=== PATIENT | female | born 1940 | race Caucasian/White ===

== ENCOUNTER 2017-07-28 23:54 | Inpatient (IN) | payer OTHER, MEDICAID ==
[~2017-07-28] VITALS: Ht 170.2 cm; Wt 95.0 kg
[2017-07-29 01:53] LABS: Basophils # (auto) 0.2 uL; Basophils % (auto) 1.6 % (0.0-2.0); Eosinophils # (auto) 0 uL; Eosinophils % (auto) 0.3 % (0.0-7.0); Hematocrit 44.3 % (36.0-46.0); Hemoglobin 14.3 g/dL (12.2-16.2); Lymphocytes # (auto) 0.8 uL; Lymphocytes % (auto) 8.1 % (10.0-50.0); Mean Corpuscular Hemoglobin 28.5 pg (28.0-32.0); Mean Corpuscular Hgb Conc. 32.3 g/dL (32.0-36.0); Monocytes # (auto) 0.8 uL; Monocytes % (auto) 8.8 % (0.0-12.0); Neutrophils # (auto) 7.5 uL; Neutrophils % (auto) 81.2 % (37.0-80.0); Nucleated Red Blood Cells % 0.1 %; Platelet Count (auto) 199 10^3/uL (140-450); Red Blood Cells 5.03 10^6/uL (4.0-5.20); Red Cell Distribution Width 15.6 % (11.8-14.3); White Blood Cell 9.3 10^3/uL (4.4-10.8)
[2017-07-29 02:08] LABS: Albumin 2.7 g/dL (3.4-5.0); Calcium 8.1 mg/dL (8.5-10.1); Magnesium 1.9 mg/dL (1.6-2.6)
[2017-07-29 02:10] LABS: BUN/Creatinine Ratio 11.3
[2017-07-29 02:12] LABS: Bilirubin, Total 0.5 mg/dL (0.2-1.0); Total Protein 6.3 g/dL (6.4-8.2)
[2017-07-29 02:16] LABS: Potassium 2.6 mmol/L (3.5-5.1)
[2017-07-29] MEDS ORDERED: ONDANSETRON HCL 4 MG/2 ML VIAL IV ONE (04:00)
[2017-07-29] MEDS ORDERED: SODIUM CHLORIDE 0.9% 1,000 ML IV ONE (04:00)
[2017-07-29] MEDS ORDERED: metroNIDAZOLE 500MG/100ML 100 ML IV ONE (05:30)
[2017-07-29 05:58] LABS: Urine Bacteria FEW /hpf (None Seen); Urine Blood 1+ /uL (Negative); Urine Hyaline Cast FEW /lpf (0 - 2); Urine Mucus FEW (None Seen); Urine Specific Gravity 1.017 (1.001-1.035); Urine WBC 174 /hpf (0 - 5); Urine WBC Clumps PRESENT /hpf (None Seen)
[2017-07-29] MEDS ORDERED: CLINDAMYCIN HCL 150 MG CAP PO ONE (06:15)
[2017-07-29] MEDS ORDERED: POTASSIUM CHL 20 Meq TABLET PO ONE (07:45)
[2017-07-29] MEDS ORDERED: DEXTROSE (50%) 50ML SYRG IV PRN (09:00)
[2017-07-29] MEDS ORDERED: NITROGLYCERIN 0.4 MG SL TAB SL PRN (09:00)
[2017-07-29] MEDS ORDERED: SOD CHL 0.9%/ KCL 40MEQ 1,000 ML IV SCH (09:00)
[2017-07-29] MEDS ORDERED: MORPHINE SULFATE 4 MG/ML SYR/VIAL IV PRN (09:00)
[2017-07-29] MEDS ORDERED: MORPHINE SULF INJ 2 MG/ML SYRINGE 1ML IV PRN ×2 (09:00)
[2017-07-29] MEDS ORDERED: LORazepam 0.5 MG TAB PO PRN (09:00)
[2017-07-29] MEDS ORDERED: TEMAZEPAM 15 MG CAP PO PRN (09:00)
[2017-07-29] MEDS ORDERED: PROMETHAZINE HCL 25 MG/ML 1ML IV PRN (09:00)
[2017-07-29] MEDS: METOPROLOL TARTRATE 25 MG TAB PO SCH ×2 (09:44→22:10)
[2017-07-29] MEDS: ENOXAPARIN SOD 80 MG/0.8ML SYRINGE SC SCH ×2 (09:45→22:10)
[2017-07-29] MEDS: NITROGLYCERIN 0.2MG/HR TOPICAL PATCH TD SCH (09:45)
[2017-07-29] MEDS: PANTOPRAZOLE 40 MG TAB PO SCH (09:45)
[2017-07-29] MEDS: POTASSIUM CHL 20MEQ/50ML 50 ML IV SCH ×3 (09:54→14:52)
[2017-07-29] MEDS: ERTAPENEM SOD INJ 1 GM in SODIUM CHL 0.9% 100 ML IV SCH (10:31)
[2017-07-29] MEDS: ACCU-CHEK COMFORT CURVE STRIP VI SCH ×3 (11:42→23:50)
[2017-07-29] MEDS: InsuLIN REG 1unit/0.01ml Soln (100units/ml) SC SCH ×3 (11:42→23:49)
[2017-07-29] MEDS: metroNIDAZOLE 500MG/100ML 100 ML IV SCH ×3 (11:47→23:45)
[2017-07-29 13:20] VITALS: BP 134/77
[2017-07-29 13:21] LABS: CRP High Sensitivity 4.6 mg/dL (< 0.3)
[2017-07-29 13:30] VITALS: BP 142/83
[2017-07-29] MEDS: SOD CHL 0.9%/ KCL 40MEQ 1,000 ML IV SCH (14:07)
[2017-07-29 16:36] VITALS: BP 127/70
[2017-07-29] MEDS ORDERED: LOVA20TA4 PO (16:48)
[2017-07-29] MEDS ORDERED: DULO60CA PO (16:48)
[2017-07-29] MEDS ORDERED: MONT10TA34 PO (16:48)
[2017-07-29] MEDS ORDERED: LEFL20TA PO (16:48)
[2017-07-29] MEDS ORDERED: CHOL20007 PO (16:48)
[2017-07-29] MEDS ORDERED: ONDA4TAB5 PO (16:48)
[2017-07-29] MEDS ORDERED: PRENTAB76 PO (16:48)
[2017-07-29] MEDS ORDERED: LEVO88TA4 PO (16:48)
[2017-07-29] MEDS ORDERED: FAM20T PO (16:48)
[2017-07-29 22:00] VITALS: BP 110/70
[2017-07-29] MEDS: ATORVASTATIN 20 MG TAB PO SCH (22:09)
[2017-07-30] VITALS (8 sets, daily range): BP systolic 103–136; BP diastolic 64–81
[2017-07-30] MEDS: SOD CHL 0.9%/ KCL 40MEQ 1,000 ML IV SCH ×3 (03:18→23:37)
[2017-07-30] MEDS: metroNIDAZOLE 500MG/100ML 100 ML IV SCH ×2 (05:36→13:30)
[2017-07-30] MEDS: ACCU-CHEK COMFORT CURVE STRIP VI SCH ×4 (05:36→23:33)
[2017-07-30] MEDS: InsuLIN REG 1unit/0.01ml Soln (100units/ml) SC SCH ×4 (05:47→23:34)
[2017-07-30 06:46] LABS: Hematocrit 39.4 % (36.0-46.0); Hemoglobin 12.5 g/dL (12.2-16.2); Mean Corpuscular Hemoglobin 28.5 pg (28.0-32.0); Mean Corpuscular Hgb Conc. 31.6 g/dL (32.0-36.0); Mean Corpuscular Volume 90.1 fL (80.0-100.0); Platelet Count (auto) 165 10^3/uL (140-450); Red Blood Cells 4.37 10^6/uL (4.0-5.20); Red Cell Distribution Width 16.4 % (11.8-14.3)
[2017-07-30 07:19] LABS: Band Neutrophils % (manual) 0; Basophils % (manual) 0 (0.0-2.0); Blast Cells 0; Eosinophils % (manual) 0 (0-7); Metamyelocytes % 0; Myelocytes % 0; Promyelocytes % 0; Reactive Lymphocytes 0
[2017-07-30 07:24] LABS: Albumin 2.4 g/dL (3.4-5.0); BUN/Creatinine Ratio 13.3; Bilirubin, Total 0.3 mg/dL (0.2-1.0); Calcium 8.1 mg/dL (8.5-10.1); Potassium 4.5 mmol/L (3.5-5.1); Total Protein 5.2 g/dL (6.4-8.2)
[2017-07-30] MEDS ORDERED: ADENOSINE 65 MG in GIVE UN-DILUTED 0 ML IV ONE (08:30)
[2017-07-30 09:40] LABS: Lymphocytes % (manual) 16 (10.0-50.0); Monocytes % (manual) 13 (0-12)
[2017-07-30] MEDS ORDERED: ALBUTEROL SULF 2.5 MG/0.5ML(0.5%) NEB SOLN ONE (09:40)
[2017-07-30] MEDS ORDERED: IPRATROPIUM BROM 0.5 MG/2.5ML INH SOL ONE (09:40)
[2017-07-30] MEDS ORDERED: DOBUTamine 1000MCG/ML 250 ML IV ONE (09:41)
[2017-07-30] MEDS: ENOXAPARIN SOD 80 MG/0.8ML SYRINGE SC SCH (10:00)
[2017-07-30] MEDS: METOPROLOL TARTRATE 25 MG TAB PO SCH ×2 (10:00→22:04)
[2017-07-30] MEDS: ERTAPENEM SOD INJ 1 GM in SODIUM CHL 0.9% 100 ML IV SCH (14:31)
[2017-07-30] MEDS: metroNIDAZOLE 500 MG TAB PO SCH ×2 (18:22→23:27)
[2017-07-30] MEDS: PANTOPRAZOLE 40 MG TAB PO SCH (18:22)
[2017-07-30] MEDS: NITROGLYCERIN 0.2MG/HR TOPICAL PATCH TD SCH (18:23)
[2017-07-30] MEDS: ATORVASTATIN 20 MG TAB PO SCH (21:37)
[2017-07-30] MEDS ORDERED: methylPREDNISolone SOD SUCC 125 MG/2 ML VL ONE (22:13)
[2017-07-30] MEDS ORDERED: methylPREDNISolone SOD SUCC 125 MG/2 ML VL IV ONE (22:15)
[2017-07-30] MEDS: ALBUTEROL SULF 2.5 MG/0.5ML(0.5%) NEB SOLN NEB PRN (22:24)
[2017-07-31 05:00] VITALS: BP 113/65
[2017-07-31] MEDS: metroNIDAZOLE 500 MG TAB PO SCH ×2 (05:44→12:24)
[2017-07-31] MEDS: ACCU-CHEK COMFORT CURVE STRIP VI SCH ×4 (05:51→23:17)
[2017-07-31] MEDS: InsuLIN REG 1unit/0.01ml Soln (100units/ml) SC SCH ×4 (05:51→23:18)
[2017-07-31] MEDS: SOD CHL 0.9%/ KCL 40MEQ 1,000 ML IV SCH ×2 (06:57→17:00)
[2017-07-31] MEDS: ALBUTEROL SULF 2.5 MG/0.5ML(0.5%) NEB SOLN NEB PRN ×3 (07:04→20:50)
[2017-07-31 09:00] VITALS: BP 133/63
[2017-07-31] MEDS: PANTOPRAZOLE 40 MG TAB PO SCH (09:15)
[2017-07-31] MEDS: METOPROLOL TARTRATE 25 MG TAB PO SCH ×2 (09:16→21:22)
[2017-07-31] MEDS: NITROGLYCERIN 0.2MG/HR TOPICAL PATCH TD SCH (09:17)
[2017-07-31 13:00] VITALS: BP 130/69
[2017-07-31] MEDS: ERTAPENEM SOD 1 GM INJ VIAL IM SCH (15:22)
[2017-07-31 17:00] VITALS: BP 124/71
[2017-07-31] MEDS: ATORVASTATIN 20 MG TAB PO SCH (21:22)
[2017-07-31 22:57] VITALS: BP 131/73
[2017-08-01] VITALS (8 sets, daily range): BP systolic 129–143; BP diastolic 65–81
[2017-08-01] MEDS: SOD CHL 0.9%/ KCL 40MEQ 1,000 ML IV SCH ×3 (02:19→22:30)
[2017-08-01] MEDS: InsuLIN REG 1unit/0.01ml Soln (100units/ml) SC SCH ×3 (06:00→18:00)
[2017-08-01] MEDS: ACCU-CHEK COMFORT CURVE STRIP VI SCH ×3 (06:21→18:39)
[2017-08-01] MEDS: PANTOPRAZOLE 40 MG TAB PO SCH (10:22)
[2017-08-01] MEDS: METOPROLOL TARTRATE 25 MG TAB PO SCH ×2 (10:23→22:07)
[2017-08-01] MEDS: NITROGLYCERIN 0.2MG/HR TOPICAL PATCH TD SCH (10:26)
[2017-08-01] MEDS: ERTAPENEM SOD 1 GM INJ VIAL IM SCH ×2 (15:00→19:06)
[2017-08-01] MEDS: ALBUTEROL SULF 2.5 MG/0.5ML(0.5%) NEB SOLN NEB PRN (19:53)
[2017-08-01] MEDS: ATORVASTATIN 20 MG TAB PO SCH (22:07)
[2017-08-02 05:53] VITALS: BP 152/90
[2017-08-02] MEDS: InsuLIN REG 1unit/0.01ml Soln (100units/ml) SC SCH ×5 (06:00→23:57)
[2017-08-02] MEDS: ACCU-CHEK COMFORT CURVE STRIP VI SCH ×5 (06:14→23:56)
[2017-08-02 08:00] VITALS: BP 133/71
[2017-08-02] MEDS: PANTOPRAZOLE 40 MG TAB PO SCH (09:58)
[2017-08-02] MEDS: METOPROLOL TARTRATE 25 MG TAB PO SCH ×2 (10:00→22:36)
[2017-08-02] MEDS ORDERED: LEVOFLOXACIN 500 MG TAB PO SCH (10:00)
[2017-08-02] MEDS: NITROGLYCERIN 0.2MG/HR TOPICAL PATCH TD SCH (10:04)
[2017-08-02 12:00] VITALS: BP 140/78
[2017-08-02] MEDS: CHOLESTYRAMINE 4 GM POWDER PO SCH ×2 (12:33→22:36)
[2017-08-02] MEDS: SOD CHL 0.9%/ KCL 40MEQ 1,000 ML IV SCH ×2 (12:33→22:35)
[2017-08-02 17:01] VITALS: BP 138/93
[2017-08-02] MEDS: ALBUTEROL SULF 2.5 MG/0.5ML(0.5%) NEB SOLN NEB PRN (19:13)
[2017-08-02 20:00] VITALS: BP 140/81
[2017-08-02 22:00] VITALS: BP 140/81
[2017-08-02] MEDS: ATORVASTATIN 20 MG TAB PO SCH (22:36)
[2017-08-03 05:00] VITALS: BP 142/87
[2017-08-03] MEDS: InsuLIN REG 1unit/0.01ml Soln (100units/ml) SC SCH ×3 (06:00→18:00)
[2017-08-03] MEDS: ACCU-CHEK COMFORT CURVE STRIP VI SCH ×3 (06:21→18:08)
[2017-08-03 09:00] VITALS: BP 148/88
[2017-08-03] MEDS: PANTOPRAZOLE 40 MG TAB PO SCH (09:36)
[2017-08-03] MEDS: METOPROLOL TARTRATE 25 MG TAB PO SCH ×2 (09:36→22:19)
[2017-08-03] MEDS: LEVOFLOXACIN 500 MG TAB PO SCH (09:36)
[2017-08-03] MEDS: NITROGLYCERIN 0.2MG/HR TOPICAL PATCH TD SCH (09:37)
[2017-08-03] MEDS: CHOLESTYRAMINE 4 GM POWDER PO SCH ×2 (09:37→22:19)
[2017-08-03] MEDS: SOD CHL 0.9%/ KCL 40MEQ 1,000 ML IV SCH ×2 (09:41→13:53)
[2017-08-03 13:00] VITALS: BP 136/78
[2017-08-03] MEDS: ALBUTEROL SULF 2.5 MG/0.5ML(0.5%) NEB SOLN NEB PRN (13:38)
[2017-08-03 17:00] VITALS: BP 137/78
[2017-08-03 20:00] VITALS: BP 127/88
[2017-08-03 22:00] VITALS: BP 127/88
[2017-08-03] MEDS: ATORVASTATIN 20 MG TAB PO SCH (22:18)
[2017-08-04] MEDS: SOD CHL 0.9%/ KCL 40MEQ 1,000 ML IV SCH ×3 (00:25→22:20)
[2017-08-04 04:53] VITALS: BP 129/84
[2017-08-04] MEDS: InsuLIN REG 1unit/0.01ml Soln (100units/ml) SC SCH ×2 (05:53)
[2017-08-04] MEDS: ACCU-CHEK COMFORT CURVE STRIP VI SCH ×2 (05:53)
[2017-08-04 07:50] VITALS: BP 129/84
[2017-08-04 09:00] VITALS: BP 129/85
[2017-08-04] MEDS ORDERED: HYDROcodone-ACET 5/325MG TAB PO PRN (09:45)
[2017-08-04] MEDS: CHOLESTYRAMINE 4 GM POWDER PO SCH ×2 (10:21→22:20)
[2017-08-04] MEDS: LEVOFLOXACIN 500 MG TAB PO SCH (10:21)
[2017-08-04] MEDS: PANTOPRAZOLE 40 MG TAB PO SCH (10:21)
[2017-08-04] MEDS: NITROGLYCERIN 0.2MG/HR TOPICAL PATCH TD SCH (10:21)
[2017-08-04] MEDS: METOPROLOL TARTRATE 25 MG TAB PO SCH ×2 (10:22→22:21)
[2017-08-04] MEDS ORDERED: ONDA4TAB5 PO (11:51)
[2017-08-04] MEDS ORDERED: BISA10SU3 RE (11:51)
[2017-08-04] MEDS ORDERED: LOPE7.5C PO (11:51)
[2017-08-04 13:13] VITALS: BP 122/61
[2017-08-04 17:00] VITALS: BP 113/76
[2017-08-04] MEDS: Boost Breeze 8 Ounces PO SCH (18:09)
[2017-08-04] MEDS: ATORVASTATIN 20 MG TAB PO SCH (22:21)
[2017-08-04 22:57] VITALS: BP 127/76
[2017-08-05 05:07] VITALS: BP 147/88
[2017-08-05] MEDS: SOD CHL 0.9%/ KCL 40MEQ 1,000 ML IV SCH ×2 (05:53→16:00)
[2017-08-05 08:00] VITALS: BP 127/74
[2017-08-05] MEDS: Boost Breeze 8 Ounces PO SCH ×3 (08:00→18:18)
[2017-08-05 09:00] VITALS: BP 98/65
[2017-08-05] MEDS: NITROGLYCERIN 0.2MG/HR TOPICAL PATCH TD SCH (10:00)
[2017-08-05] MEDS: PANTOPRAZOLE 40 MG TAB PO SCH (10:17)
[2017-08-05] MEDS: LEVOFLOXACIN 500 MG TAB PO SCH (10:17)
[2017-08-05] MEDS: CHOLESTYRAMINE 4 GM POWDER PO SCH ×2 (10:18→22:31)
[2017-08-05] MEDS: METOPROLOL TARTRATE 25 MG TAB PO SCH ×2 (10:18→21:50)
[2017-08-05 13:00] VITALS: BP 100/66
[2017-08-05 16:52] VITALS: BP 114/72
[2017-08-05] MEDS ORDERED: HYDROcodone-ACET 5/325MG TAB PO PRN (21:45)
[2017-08-05] MEDS: ATORVASTATIN 20 MG TAB PO SCH (21:50)
[2017-08-05 22:00] VITALS: BP 108/57
[2017-08-06] MEDS: SOD CHL 0.9%/ KCL 40MEQ 1,000 ML IV SCH ×2 (03:49→15:35)
[2017-08-06 05:00] VITALS: BP 90/59
[2017-08-06 08:55] VITALS: BP 97/63
[2017-08-06] MEDS: LEVOFLOXACIN 500 MG TAB PO SCH (10:00)
[2017-08-06] MEDS: NITROGLYCERIN 0.2MG/HR TOPICAL PATCH TD SCH (10:00)
[2017-08-06] MEDS: CHOLESTYRAMINE 4 GM POWDER PO SCH ×2 (10:00→22:20)
[2017-08-06] MEDS: PANTOPRAZOLE 40 MG TAB PO SCH (10:00)
[2017-08-06] MEDS: Boost Breeze 8 Ounces PO SCH ×3 (10:02→18:00)
[2017-08-06] MEDS: METOPROLOL TARTRATE 25 MG TAB PO SCH ×2 (10:03→22:00)
[2017-08-06 12:00] VITALS: BP 120/68
[2017-08-06] MEDS ORDERED: ERTAPENEM SOD INJ 1 GM in SODIUM CHL 0.9% 100 ML IV SCH (13:45)
[2017-08-06] MEDS ORDERED: LORazepam 2MG/ML-1ML VIAL IV PRN (15:00)
[2017-08-06] MEDS ORDERED: ERTAPENEM SOD 1 GM INJ VIAL IM SCH (15:21)
[2017-08-06] MEDS ORDERED: ERTAPENEM SOD INJ 1 GM in SODIUM CHL 0.9% 100 ML IV ONE (15:30)
[2017-08-06 16:45] VITALS: BP 105/64
[2017-08-06 22:00] VITALS: BP 92/66
[2017-08-06] MEDS: ATORVASTATIN 20 MG TAB PO SCH (22:20)
[2017-08-07 03:09] VITALS: BP 92/66
[2017-08-07] MEDS: SOD CHL 0.9%/ KCL 40MEQ 1,000 ML IV SCH ×3 (03:36→17:44)
[2017-08-07 05:00] VITALS: BP 116/66
[2017-08-07 08:20] VITALS: BP 124/86
[2017-08-07] MEDS ORDERED: ERTAPENEM SOD 1 GM INJ VIAL IM SCH (10:00)
[2017-08-07] MEDS: NITROGLYCERIN 0.2MG/HR TOPICAL PATCH TD SCH (10:00)
[2017-08-07] MEDS: CHOLESTYRAMINE 4 GM POWDER PO SCH ×2 (11:09→21:46)
[2017-08-07] MEDS: Boost Breeze 8 Ounces PO SCH ×3 (11:10→18:09)
[2017-08-07] MEDS: METOPROLOL TARTRATE 25 MG TAB PO SCH ×2 (11:10→21:56)
[2017-08-07] MEDS: ALBUTEROL SULF 2.5 MG/0.5ML(0.5%) NEB SOLN NEB PRN (11:23)
[2017-08-07] MEDS ORDERED: FLORASTOR (S. BOULARDII) 250 MG CAP PO ONE (12:00)
[2017-08-07 13:36] VITALS: BP 126/84
[2017-08-07] MEDS: MEROPENEM 1gm/20ml IVPUSH 20 ML IV SCH ×2 (15:57→21:47)
[2017-08-07 17:00] VITALS: BP 130/76
[2017-08-07 21:30] VITALS: BP 138/57
[2017-08-07] MEDS: ATORVASTATIN 20 MG TAB PO SCH (21:46)
[2017-08-08] MEDS: SOD CHL 0.9%/ KCL 40MEQ 1,000 ML IV SCH ×3 (02:36→23:14)
[2017-08-08 05:26] VITALS: BP 104/81
[2017-08-08] MEDS: MEROPENEM 1gm/20ml IVPUSH 20 ML IV SCH ×3 (05:46→22:40)
[2017-08-08 07:30] VITALS: BP 124/72
[2017-08-08] MEDS: Boost Breeze 8 Ounces PO SCH ×3 (08:00→18:00)
[2017-08-08] MEDS: ALBUTEROL SULF 2.5 MG/0.5ML(0.5%) NEB SOLN NEB PRN ×2 (09:20→20:20)
[2017-08-08] MEDS: NITROGLYCERIN 0.2MG/HR TOPICAL PATCH TD SCH (10:00)
[2017-08-08] MEDS: METOPROLOL TARTRATE 25 MG TAB PO SCH ×2 (10:08→22:00)
[2017-08-08] MEDS: FLORASTOR (S. BOULARDII) 250 MG CAP PO SCH (10:08)
[2017-08-08] MEDS: CHOLESTYRAMINE 4 GM POWDER PO SCH ×2 (10:08→22:40)
[2017-08-08 13:24] VITALS: BP 109/64
[2017-08-08 16:51] VITALS: BP 98/47
[2017-08-08 22:00] VITALS: BP 104/74
[2017-08-08] MEDS: ATORVASTATIN 20 MG TAB PO SCH (22:40)
[2017-08-09 05:00] VITALS: BP 98/75
[2017-08-09] MEDS: ALBUTEROL SULF 2.5 MG/0.5ML(0.5%) NEB SOLN NEB PRN ×3 (06:19→22:45)
[2017-08-09] MEDS: MEROPENEM 1gm/20ml IVPUSH 20 ML IV SCH ×3 (06:20→22:32)
[2017-08-09 07:26] VITALS: BP 117/79
[2017-08-09] MEDS: Boost Breeze 8 Ounces PO SCH ×3 (08:00→18:00)
[2017-08-09 09:05] LABS: Basophils # (auto) 0.1 uL; Basophils % (auto) 1.1 % (0.0-2.0); Eosinophils # (auto) 0.2 uL; Eosinophils % (auto) 1.9 % (0.0-7.0); Hematocrit 39.6 % (36.0-46.0); Hemoglobin 12.8 g/dL (12.2-16.2); Lymphocytes # (auto) 1.6 uL; Lymphocytes % (auto) 18.6 % (10.0-50.0); Mean Corpuscular Hemoglobin 28.9 pg (28.0-32.0); Mean Corpuscular Hgb Conc. 32.3 g/dL (32.0-36.0); Mean Corpuscular Volume 89.4 fL (80.0-100.0); Monocytes # (auto) 0.8 uL; Monocytes % (auto) 9.5 % (0.0-12.0); Neutrophils # (auto) 5.8 uL; Neutrophils % (auto) 68.9 % (37.0-80.0); Nucleated Red Blood Cells % 0.2 %; Platelet Count (auto) 183 10^3/uL (140-450); Red Blood Cells 4.43 10^6/uL (4.0-5.20); White Blood Cell 8.4 10^3/uL (4.4-10.8)
[2017-08-09 09:45] LABS: Albumin 2.2 g/dL (3.4-5.0); BUN/Creatinine Ratio 9.4; Bilirubin, Total 0.5 mg/dL (0.2-1.0); Calcium 7.9 mg/dL (8.5-10.1); Potassium 4.4 mmol/L (3.5-5.1); Total Protein 5.2 g/dL (6.4-8.2)
[2017-08-09] MEDS: SOD CHL 0.9%/ KCL 40MEQ 1,000 ML IV SCH ×2 (10:00→20:00)
[2017-08-09] MEDS: NITROGLYCERIN 0.2MG/HR TOPICAL PATCH TD SCH ×2 (10:00→10:06)
[2017-08-09] MEDS: FLORASTOR (S. BOULARDII) 250 MG CAP PO SCH (10:05)
[2017-08-09] MEDS: METOPROLOL TARTRATE 25 MG TAB PO SCH ×2 (10:05→22:00)
[2017-08-09] MEDS: CHOLESTYRAMINE 4 GM POWDER PO SCH ×2 (11:23→22:28)
[2017-08-09 11:51] VITALS: BP 116/71
[2017-08-09 16:41] VITALS: BP 116/75
[2017-08-09 22:00] VITALS: BP 99/54
[2017-08-09] MEDS: ATORVASTATIN 20 MG TAB PO SCH (22:21)
[2017-08-09 23:38] VITALS: BP 116/75
[2017-08-10 05:00] VITALS: BP 120/73
[2017-08-10] MEDS: SOD CHL 0.9%/ KCL 40MEQ 1,000 ML IV SCH ×2 (05:30→16:00)
[2017-08-10] MEDS: MEROPENEM 1gm/20ml IVPUSH 20 ML IV SCH ×3 (05:31→21:43)
[2017-08-10] MEDS: ALBUTEROL SULF 2.5 MG/0.5ML(0.5%) NEB SOLN NEB PRN ×3 (06:10→23:16)
[2017-08-10 08:00] VITALS: BP 121/58
[2017-08-10 09:00] VITALS: BP 121/48
[2017-08-10] MEDS: NITROGLYCERIN 0.2MG/HR TOPICAL PATCH TD SCH (10:00)
[2017-08-10] MEDS: Boost Breeze 8 Ounces PO SCH ×3 (10:35→18:00)
[2017-08-10] MEDS: FLORASTOR (S. BOULARDII) 250 MG CAP PO SCH (10:35)
[2017-08-10] MEDS: CHOLESTYRAMINE 4 GM POWDER PO SCH ×2 (10:37→21:44)
[2017-08-10] MEDS: METOPROLOL TARTRATE 25 MG TAB PO SCH ×2 (10:37→22:07)
[2017-08-10 13:00] VITALS: BP 104/69
[2017-08-10 17:00] VITALS: BP 99/60
[2017-08-10] MEDS: ATORVASTATIN 20 MG TAB PO SCH (21:44)
[2017-08-10 22:00] VITALS: BP 121/66
[2017-08-11] MEDS: SOD CHL 0.9%/ KCL 40MEQ 1,000 ML IV SCH ×3 (00:03→21:52)
[2017-08-11 05:00] VITALS: BP 157/67
[2017-08-11] MEDS: ALBUTEROL SULF 2.5 MG/0.5ML(0.5%) NEB SOLN NEB PRN (05:46)
[2017-08-11] MEDS: MEROPENEM 1gm/20ml IVPUSH 20 ML IV SCH ×3 (06:00→21:53)
[2017-08-11 08:00] VITALS: BP 106/72
[2017-08-11] MEDS: Boost Breeze 8 Ounces PO SCH ×3 (08:43→17:46)
[2017-08-11] MEDS: FLORASTOR (S. BOULARDII) 250 MG CAP PO SCH (08:44)
[2017-08-11] MEDS: CHOLESTYRAMINE 4 GM POWDER PO SCH ×2 (08:44→21:54)
[2017-08-11] MEDS: METOPROLOL TARTRATE 25 MG TAB PO SCH ×2 (08:44→21:54)
[2017-08-11] MEDS: NITROGLYCERIN 0.2MG/HR TOPICAL PATCH TD SCH (08:44)
[2017-08-11 09:00] VITALS: BP 106/72
[2017-08-11 13:00] VITALS: BP 101/70
[2017-08-11 17:02] VITALS: BP 114/75
[2017-08-11] MEDS: ATORVASTATIN 20 MG TAB PO SCH (21:53)
[2017-08-11 22:00] VITALS: BP 124/63
[2017-08-12] VITALS (7 sets, daily range): BP systolic 105–138; BP diastolic 62–87
[2017-08-12] MEDS: MEROPENEM 1gm/20ml IVPUSH 20 ML IV SCH ×2 (05:38→11:31)
[2017-08-12] MEDS: NITROGLYCERIN 0.2MG/HR TOPICAL PATCH TD SCH (10:00)
[2017-08-12] MEDS: ALBUTEROL SULF 2.5 MG/0.5ML(0.5%) NEB SOLN NEB PRN (10:33)
[2017-08-12] MEDS: METOPROLOL TARTRATE 25 MG TAB PO SCH (11:31)
[2017-08-12] MEDS: FLORASTOR (S. BOULARDII) 250 MG CAP PO SCH (11:31)
[2017-08-12] MEDS: SOD CHL 0.9%/ KCL 40MEQ 1,000 ML IV SCH ×2 (11:32→16:59)
[2017-08-12] MEDS: CHOLESTYRAMINE 4 GM POWDER PO SCH (11:32)
[2017-08-12] MEDS: Boost Breeze 8 Ounces PO SCH ×3 (11:32→17:28)
== END 2017-08-12 22:30 | DRG 280 ==
LOC: EDBD 23:54 → ER 23:54 → TELE 23:55 → TELE-WESTW 07-29 13:34
PROVIDERS: ADMIT Internal Medicine; ATTEND Internal Medicine Pulmonary Disease
DX: I21.4 Non-ST elevation (NSTEMI) myocardial infarction (principal); E43 Unspecified severe protein-calorie malnutrition; A04.8 Other specified bacterial intestinal infections; G91.2 (Idiopathic) normal pressure hydrocephalus; B96.1 Klebsiella pneumoniae [K. pneumoniae] as the cause of diseases classified elsewhere; E11.9 Type 2 diabetes mellitus without complications; K57.32 Diverticulitis of large intestine without perforation or abscess without bleeding; N39.0 Urinary tract infection, site not specified; G30.9 Alzheimer's disease, unspecified; F02.80 Dementia in other diseases classified elsewhere, unspecified severity, without behavioral disturbance, psychotic disturbance, mood disturbance, and anxiety; E66.9 Obesity, unspecified; E78.5 Hyperlipidemia, unspecified; R29.6 Repeated falls; E87.6 Hypokalemia; I44.0 Atrioventricular block, first degree; I10 Essential (primary) hypertension; K76.0 Fatty (change of) liver, not elsewhere classified; Z96.652 Presence of left artificial knee joint; K42.9 Umbilical hernia without obstruction or gangrene; R21 Rash and other nonspecific skin eruption; Z88.1 Allergy status to other antibiotic agents; Z88.0 Allergy status to penicillin; Z88.8 Allergy status to other drugs, medicaments and biological substances; Z68.32 Body mass index [BMI] 32.0-32.9, adult; Z91.81 History of falling; Z98.2 Presence of cerebrospinal fluid drainage device
CPT/HCPCS: 36415; 51702; 70551; 71010; 74176; 76705; 78452; 80053; 80061; 81001; 82150; 82550; 82607; 82962; 83036; 83690; 83735; 83880; 84132; 84443; 84484; 85007; 85025; 85027; 85048; 85652; 86141; 87045; 87081; 87086; 87088; 87177; 87186; 87493; 87899; 93005; 93017; 94640; 95819; 96374; 96375; 96379; 97163; J0153; J1335; J1815; J2405; J3490

== ENCOUNTER 2017-12-07 12:09 | Inpatient (IN) | payer OTHER, MEDICAID ==
[~2017-12-07] VITALS: Ht 177.8 cm; Wt 76.5 kg
[~2017-12-07 12:09] MED LIST: BISA10SU3 RE; CHOL20007 PO; DULO60CA PO; FAM20T PO; LEFL20TA PO; LEVO88TA4 PO; LOPE7.5C PO; LOVA20TA4 PO; MONT10TA34 PO; ONDA4TAB5 PO; PRENTAB76 PO
[2017-12-07] MEDS ORDERED: diphenhdrAMINE HCL 50 MG/1 ML VL IV ONE (13:30)
[2017-12-07 14:45] LABS: INR 1.05 (0.9-1.15); Partial Thromboplastin Time 28.5 sec (22.64-33.71); Prothrombin Time 11.4 sec (9.37-12.3)
[2017-12-07 14:52] LABS: Albumin 3.1 g/dL (3.4-5.0); BUN/Creatinine Ratio 13.9; Bilirubin, Total 0.6 mg/dL (0.2-1.0); Calcium 9.1 mg/dL (8.5-10.1); Magnesium 2.5 mg/dL (1.6-2.6); Potassium 3.6 mmol/L (3.5-5.1); Total Protein 7.3 g/dL (6.4-8.2)
[2017-12-07] MEDS ORDERED: FAMOTIDINE 20 MG TAB PO ONE (15:45)
[2017-12-07] MEDS ORDERED: TEMAZEPAM 15 MG CAP PO PRN (15:45)
[2017-12-07] MEDS ORDERED: PROMETHAZINE HCL 25 MG/ML 1ML IV PRN (15:45)
[2017-12-07] MEDS ORDERED: MORPHINE SULFATE 4 MG/ML SYR/VIAL IV PRN ×3 (15:45)
[2017-12-07] MEDS ORDERED: LACTULOSE 20Gm/30ML SOLN PO PRN (15:45)
[2017-12-07] MEDS ORDERED: NITROGLYCERIN 0.4 MG SL TAB SL PRN (15:45)
[2017-12-07] MEDS ORDERED: LORazepam 0.5 MG TAB PO PRN (15:45)
[2017-12-07 16:06] LABS: Basophils # (auto) 0 uL; Basophils % (auto) 0.6 % (0.0-2.0); Eosinophils # (auto) 0.1 uL; Eosinophils % (auto) 1.5 % (0.0-7.0); Hematocrit 42.5 % (36.0-46.0); Lymphocytes # (auto) 1.4 uL; Lymphocytes % (auto) 20.5 % (10.0-50.0); Mean Corpuscular Hemoglobin 29.7 pg (28.0-32.0); Mean Corpuscular Hgb Conc. 33.1 g/dL (32.0-36.0); Mean Corpuscular Volume 89.9 fL (80.0-100.0); Monocytes # (auto) 0.4 uL; Monocytes % (auto) 6.1 % (0.0-12.0); Neutrophils % (auto) 71.3 % (37.0-80.0); Nucleated Red Blood Cells % 0.2 %; Platelet Count (auto) 239 10^3/uL (140-450); Red Blood Cells 4.73 10^6/uL (4.0-5.20)
[2017-12-07] MEDS: SODIUM CHLORIDE 0.9% 1,000 ML IV SCH (16:06)
[2017-12-07 22:00] VITALS: BP 137/76
[2017-12-07] MEDS: FAMOTIDINE 20 MG TAB PO SCH (22:03)
[2017-12-07] MEDS: diphenhdrAMINE HCL 25 MG CAP PO PRN (22:04)
[2017-12-08] VITALS (7 sets, daily range): BP systolic 117–144; BP diastolic 70–85
[2017-12-08] MEDS: SODIUM CHLORIDE 0.9% 1,000 ML IV SCH ×2 (04:05→16:39)
[2017-12-08] MEDS ORDERED: hydrOXYzine 25 MG TAB or CAP PO PRN (09:00)
[2017-12-08] MEDS: TRIAMCINOLONE ACET 0.1% TOPICAL CREAM 15GM TOP SCH ×2 (11:00→21:05)
[2017-12-08] MEDS: FAMOTIDINE 20 MG TAB PO SCH ×2 (11:25→21:04)
[2017-12-08] MEDS: ENOXAPARIN SOD 40 MG/0.4 ML SYRINGE SC SCH (11:25)
[2017-12-08] MEDS: NYSTATIN TOPICAL CREAM 15GM TOP SCH ×2 (11:26→21:04)
[2017-12-08] MEDS: diphenhdrAMINE HCL 25 MG CAP PO PRN (11:41)
[2017-12-08 16:14] LABS: Urine Bacteria NONE SEEN /hpf (None Seen); Urine Blood Negative /uL (Negative); Urine WBC <1 /hpf (0 - 5)
[2017-12-09] VITALS (7 sets, daily range): BP systolic 128–177; BP diastolic 73–95
[2017-12-09] MEDS: SODIUM CHLORIDE 0.9% 1,000 ML IV SCH ×2 (05:09→17:39)
[2017-12-09] MEDS: FAMOTIDINE 20 MG TAB PO SCH ×2 (10:02→20:22)
[2017-12-09] MEDS: ENOXAPARIN SOD 40 MG/0.4 ML SYRINGE SC SCH (10:02)
[2017-12-09] MEDS ORDERED: LEVOTHYROXINE SODIUM 88 MCG TAB PO ONE (10:45)
[2017-12-09] MEDS ORDERED: IOHEXOL 300 MG/ML 100ML BOTTLE IJ ONE (13:05)
[2017-12-09] MEDS: NYSTATIN TOPICAL CREAM 15GM TOP SCH ×2 (16:08→20:23)
[2017-12-09] MEDS: TRIAMCINOLONE ACET 0.1% TOPICAL CREAM 15GM TOP SCH ×2 (16:08→20:23)
[2017-12-09] MEDS: MONTELUKAST SODIUM 10 MG TAB PO SCH (20:22)
[2017-12-10 05:44] VITALS: BP 129/80
[2017-12-10] MEDS: LEVOTHYROXINE SODIUM 88 MCG TAB PO SCH (05:56)
[2017-12-10] MEDS: SODIUM CHLORIDE 0.9% 1,000 ML IV SCH (06:09)
[2017-12-10 09:00] VITALS: BP 136/74
[2017-12-10] MEDS: FAMOTIDINE 20 MG TAB PO SCH ×2 (10:52→21:49)
[2017-12-10] MEDS: NYSTATIN TOPICAL CREAM 15GM TOP SCH ×2 (10:53→21:50)
[2017-12-10 13:00] VITALS: BP 133/72
[2017-12-10 17:00] VITALS: BP 138/74
[2017-12-10] MEDS: TRIAMCINOLONE ACET 0.1% TOPICAL CREAM 15GM TOP SCH (20:11)
[2017-12-10] MEDS: MONTELUKAST SODIUM 10 MG TAB PO SCH (21:49)
[2017-12-10 21:54] VITALS: BP 131/92
[2017-12-11] MEDS: TRIAMCINOLONE ACET 0.1% TOPICAL CREAM 15GM TOP SCH ×2 (00:16→18:19)
[2017-12-11 05:16] VITALS: BP 115/69
[2017-12-11] MEDS: LEVOTHYROXINE SODIUM 88 MCG TAB PO SCH (06:40)
[2017-12-11 09:00] VITALS: BP 140/78
[2017-12-11] MEDS: NYSTATIN TOPICAL CREAM 15GM TOP SCH (10:00)
[2017-12-11] MEDS: FAMOTIDINE 20 MG TAB PO SCH ×2 (12:49→22:08)
[2017-12-11 13:00] VITALS: BP 142/78
[2017-12-11 17:00] VITALS: BP 145/76
[2017-12-11 20:00] VITALS: BP 129/75
[2017-12-11 22:00] VITALS: BP 129/75
[2017-12-11] MEDS: MONTELUKAST SODIUM 10 MG TAB PO SCH (22:08)
[2017-12-12 05:00] VITALS: BP 145/80
[2017-12-12] MEDS: NYSTATIN TOPICAL CREAM 15GM TOP SCH ×2 (06:39→10:45)
[2017-12-12] MEDS: TRIAMCINOLONE ACET 0.1% TOPICAL CREAM 15GM TOP SCH ×2 (06:39→10:45)
[2017-12-12] MEDS: LEVOTHYROXINE SODIUM 88 MCG TAB PO SCH (06:39)
[2017-12-12 09:00] VITALS: BP 140/60
[2017-12-12] MEDS: FAMOTIDINE 20 MG TAB PO SCH (10:45)
== END 2017-12-12 11:45 | disposition home or self-care (01) | DRG 607 ==
LOC: EDBD 12:09 → EDUNIT# 12:09 → ER 12:09 → TELE 12:10 → TELE-CENTR 20:28 → CENTRAL 12-09 11:47
PROVIDERS: ADMIT Internal Medicine; ATTEND Internal Medicine
DX: L27.0 Generalized skin eruption due to drugs and medicaments taken internally (principal); G91.2 (Idiopathic) normal pressure hydrocephalus; E11.9 Type 2 diabetes mellitus without complications; E03.9 Hypothyroidism, unspecified; E78.5 Hyperlipidemia, unspecified; B36.9 Superficial mycosis, unspecified; K21.9 Gastro-esophageal reflux disease without esophagitis; I10 Essential (primary) hypertension; T36.8X5A Adverse effect of other systemic antibiotics, initial encounter; Z88.0 Allergy status to penicillin; Z88.2 Allergy status to sulfonamides; Z88.5 Allergy status to narcotic agent; Z88.1 Allergy status to other antibiotic agents; Y92.89 Other specified places as the place of occurrence of the external cause; Z90.710 Acquired absence of both cervix and uterus; Z79.899 Other long term (current) drug therapy; Z87.440 Personal history of urinary (tract) infections; Z91.81 History of falling
CPT/HCPCS: 36415; 71045; 71260; 80053; 81001; 83735; 85025; 85610; 85652; 85730; 87081; 87086; 93005; 94761; 96374; 97110; 97116